=== PATIENT | female | born 1950 | race Caucasian/White ===

== ENCOUNTER 2024-01-07 14:26 | Inpatient (IN) | payer MEDICARE, OTHER, SELFPAY ==
--- NOTE | 2024-01-07 10:32 | W.PN.CARDCBS ---
Today's Communication / Plan
-
NPO
cefazolin preop
PPM today
Impression / Plan
-
PCP: Gisell Sam,
CDY: Mckenna Cortez MD
HPI: 73 y/o, PMH sig for HTN, HLD, GERD, DM, JENNIE/CPAP, Hypothyroid, known RBBB. Presented to ER after she noted bradycardia on her watch, rates 38-40s. She was found to be in CHB with LBBB pattern. She is on no BB or rate reducing meds. Lase Echo
01/2022 w/nml LVSF, mild MR, last nuclear perfusion study 01/2022 was reportedly normal. Transferred today for PPM implant.
IMPRESSION:
CHB, new LBBB
RBBB
HTN
HLD
GERD
DM
JENNIE/CPAP
Hypothyroidism
Iron Deficient Anemia
Depression
PLAN:
NPO preop
Iodine allergy is topical only- has had IV contrast without reaction- no need for dye prep
for DC PPM implant today
CXR post procedure
Cefazolin pre/post op prophylaxis
Continue current meds as before
hold metformin 48h post procedure d/t dye load
incision check next week at [facility]
followup with Dr. Cortez at [facility] thereafter
Progress Note - Volunteer Services Supervisor
Subjective
Date of Service: January 07, 2024
Physical Exam
Physical Exam
AAOx3, MAEE 02/26
Bradycardia, S1 S2, no murmurs
CTA bilat, non labored
soft abd, + bs
bilat extremities w/palpable distal pulses, no edema
[2024-01-07 12:58] LABS: Glucose - Point of Care 136 mg/dl (70-99)
--- NOTE | 2024-01-07 14:31 | ITS.CL.PACE ---
Addendum entered and electronically signed by Jean Paul MD 01/07/24 16:54:
Fluoroscopy Time (min): 17.3
Radiation Dose (mGy): 95.5
DAP (Gy.cm2): 11.4
Original Note:
Mirror Inspector - Pacemaker Implant
Pacemaker Implant
Procedure Report:
PACEMAKER IMPLANT REPORT
Primary Care Provider: Dr. Gisell Sam
Primary Blasting Gang Miner: Dr. Mckenna Cortez
Date of Procedure: January 07, 2024
Procedure:
1: Implantation of dual-chamber permanent pacemaker utilizing the left bundle branch for conduction system pacing
Indication/Diagnosis:
1: Non-reversible symptomatic bradycardia due to third degree atrioventricular block
HISTORY: The patient is a 73-year-old woman with a past medical history significant for diabetes and hypertension who presents in third-degree AV block with profound bradycardia. She is referred for a dual-chamber pacemaker placement.
Antibiotic: 2 g Ancef IV
Sedation: Conscious sedation
After informed consent was obtained, 'time out' was called and confirmed, the patient was prepped and draped in a sterile fashion. Lidocaine with epi was used for local anesthesia. Central venous access was obtained via subclavian venipuncture. An
incision was made along the left chest and a pre-pectoral pocket was formed. Using a Seldinger technique and peel-away sheaths, the pacing leads were placed under fluoroscopic guidance.
Fluoroscopy was used to determine likely anatomic site for left bundle branch pacing. The Medtronic C315 sheath was used to deliver the Medtronic 3830 Selectsecure pacing lead with the helix exposed just exposed from the sheath tip during continuous
monitoring when pacemapping the septum during gentle clockwise rotation to obtain a paced QRS morphology of a W pattern in lead V1. Once the suspected optimal site was identified, lead deployment was performed with several rapid rotations as paced
QRS morphology was intermittently monitored until a paced QRS complex in lead V1 demonstrated development of an R wave (qR or rSR).
Stable VEGM injury current is present throughout lead position and at end of case.
Final unipolar pacing impedance is 665 Ohms.
Unipolar pacing threshold is stable at 0.75V @ 0.4 ms.
Final conduction system paced QRS complex duration is 106ms.
LVAT is 69 ms and peak V5 -> peak V1 timing is 60 ms.
Right atrial lead was placed at the RAA.
Once testing (see below) showed adequate and stable function, the leads were secured using the suture sleeves. The pocket was liberally irrigated with antibiotic solution. The leads were connected to the generator header and the leads and
generator were placed within the pocket. Fluoroscopy confirmed stable lead position. The pocket was closed in the typical fashion.
Fluoroscopy was used to guide lead placement. Fluoroscopic exposure 17.3 min and [ ] mGy
IMPLANTS:
Medtronic [id number], SN: [id number], Left Pectoral
RA: Medtronic 5076-52, SN: [id number] , RAA
RV: Medtronic 3830 , SN:[id number], Interventricular septum at LBB
DEVICE TESTING:
Sensing: RA 2.0 mV, RV 6.0 mV
Capture: RA 0.75V@0.4ms, RV 0.75 V@0.4ms
Ohms: RA 475 , RV 665
FINAL PROGRAMMING
Fredy Pacing: DDDR 50-130 ppm
COMPLICATIONS: None
CONCLUSIONS:
1: Successful implant of dual chamber permanent pacemaker utilizing Left Bundle Branch conduction system capture for pacing. Overall findings are most consistent with LBB capture.
RECOMMENDATIONS:
1. Post-op care (tele, CXR, IV abx)
2. In-Office wound check in 5-7 days
Copy to: Dr. Gisell Sam, Dr. Mckenna Cortez
--- NOTE | 2024-01-07 17:04 | CM ---
spoke to pt in room, she is prev indep, lives with her husb in a 2 story hoe with a first floor set up and 3 steps to enter. she has a cane and walker to use if needed. she denies any dc planning needs or dme's. plan is for dc to home when medically
stable.
--- NOTE | 2024-01-07 18:07 | PTCARENOTE ---
Received patient post PPM left upper chest at 1630. Oriented to room and plan of care, admission assessment completed. Dressing left upper chest is dry and intact, sling in place LUE. Patient reports not pain or discomfort, reviewed post ppm
restrictions. VSS, assisted oob to the bathroom and voided qs. Transported via wheel chair to radiology and CXR done. Remains V paced on the monitor.
[2024-01-07] MEDS: TYLENOL 650 MG PO (19:15)
[2024-01-07] MEDS: ANCEF 5 IV (22:39)
--- NOTE | 2024-01-07 23:47 | PTCARENOTE ---
Patient ambulating w/ out difficulty and requires minimal assist with getting in & out of bed. Tele remains Vpaced on monitor, and HR in the 50-60's. VSS. Left anterior dressing C/D/I and sling remains in place. Patient aware of activity
restrictions. Call nickerson in reach.
[2024-01-08] MEDS: TYLENOL 650 MG PO ×2 (03:53→08:54)
[2024-01-08 04:43] LABS: Blood Urea Nitrogen 16 mg/dl (7-17); Calcium 9.3 mg/dl (8.4-10.2); Carbon Dioxide 25 mmol/L (22-30); Chloride 106 mmol/L (98-107); Estimated Creatinine Clearance 67 ml/min; Glucose 113 mg/dl (70-99); Magnesium 1.8 mg/dl (1.6-2.3); Potassium 4.5 mmol/L (3.5-5.1); Sodium 138 mmol/L (135-145); eGFR > 60.00
[2024-01-08 04:47] LABS: Hemoglobin 10.8 g/dL (12.0-16.0); Mean Corp Hgb Conc. 31.8 g/dL (33.0-37.0); Mean Corpuscular Hgb 28.1 pg (27.0-31.0); Mean Corpuscular Volume 88.3 fL (81.0-99.0); Platelet Count 260 10^3/uL (130-400); Red Blood Cell Count 3.85 10^6/uL (4.20-5.40); Red Cell Dist. Width 13.3 % (11.5-14.5); White Blood Cell Count 4.9 10^3/uL (4.8-10.8)
[2024-01-08] MEDS: SYNTHROID 137 MCG PO (06:20)
[2024-01-08] MEDS: ANCEF 5 IV (06:20)
--- NOTE | 2024-01-08 08:00 | W.PN.CARDCBS ---
Addendum entered and electronically signed by Alfred Flynn MD 01/08/24 08:40:
I saw and examined the patient.
The Airdox Fitter's note was reviewed and I agree with the note.
Comment: Briefly, 73-year-old woman who presented to [place] ER after noting bradycardia on her Apple Watch and was found to be in complete heart block
Transferred to [facility] for permanent pacemaker implantation on 01/07/2024
She is feeling well this morning, no cardiac complaints, paced on telemetry
Incision is clean dry and intact
For discharge from my perspective
Original Note:
Today's Communication / Plan
-
Stable for discharge
Hold metformin post procedure, resume Wednesday AM.
Follow up w/ [facility] for incision check
Impression / Plan
-
PCP: Gisell Sam DO
CDY: Mckenna Cortez MD
Impression:
CHB, new LBBB
s/p Medtronic DC PPM 01/07/2024
RBBB
HTN
HLD
GERD
DM
JENNIE/CPAP
Hypothyroidism
Iron Deficient Anemia
Depression
Plan:
-Presented initially to [facility] with bradycardia and found to be in CHB with LBBB pattern. She was transferred to for PPM implantation.
-s/p Medtronic PPM 01/07/2024. Doing well overnight without any dizziness.
-Remains paced on tele, HR stable.
-She was not on BB or CCB prior to procedure.
-Hold metformin 48h post procedure d/t dye load
-Incision check next week at [facility] has been arranged
-Followup with Dr. Cortez at [facility] thereafter
HPI: 73 y/o, PMH sig for HTN, HLD, GERD, DM, JENNIE/CPAP, Hypothyroid, known RBBB. Presented to ER after she noted bradycardia on her watch, rates 38-40s. She was found to be in CHB with LBBB pattern. She is on no BB or rate reducing meds. Lase Echo
01/2022 w/nml LVSF, mild MR, last nuclear perfusion study 01/2022 was reportedly normal. Transferred today for PPM implant.
Progress Note - Buffet Waiter/Waitress
Subjective
Date of Service: January 08, 2024
Feeling well this AM. No compaints.
Objective
Labs:
01/08/24 03:49
01/08/24 03:49
Labs
Hgb 10.8 g/dL (12.0-16.0) L 01/08/24 03:49
Hct 34.0 % (37.0-47.0) L 01/08/24 03:49
Plt Count 260 10^3/uL (130-400) 01/08/24 03:49
Sodium 138 mmol/L (135-145) 01/08/24 03:49
Potassium 4.5 mmol/L (3.5-5.1) 01/08/24 03:49
BUN 16 mg/dl (7-17) 01/08/24 03:49
Creatinine 0.9 mg/dL (0.6-1.0) 01/08/24 03:49
Glucose 113 mg/dl (70-99) H 01/08/24 03:49
Vital Signs and I&O:
Vital Signs
Temp Pulse Resp BP Pulse Ox
98.2 F 64 16 146/79 96
01/08/24 07:43 01/08/24 07:43 01/08/24 07:43 01/08/24 03:40 01/08/24 07:43
Vital Signs
Temp Pulse Resp BP Pulse Ox
98.2 F 64 16 146/79 96
01/08/24 07:43 01/08/24 07:43 01/08/24 07:43 01/08/24 03:40 01/08/24 07:43
Intake & Output
01/06/24 01/07/24 01/08/24 01/09/24
06:59 06:59 06:59 06:59
Intake Total 480 / 480
Balance 480 / 480
Physical Exam
Physical Exam
GEN: No distress, awake, alert, oriented x3
HEENT: supple, anicteric, mmm
LUNGS: CTA b/l, no wheezes/rales
CV: Reg, S1/S2, no murmur
EXT: No clubbing, cyanosis, or edema
NEURO: Gross non-focal
SKIN: Warm, dry, no rash. L chest dressing c/d/i
--- NOTE | 2024-01-08 08:15 | W.DS.TRANS ---
DC Summary - Networking Administrator
-
Discharge Instructions:
Discharge Diagnosis/Procedures Heart block, post Pacemaker implant
Diet Diabetic, Carb Controlled,Low Cholesterol
Driving Restrictions No driving for 1 week
Bathing Restrictions OK to Shower
Instructions:
Stand-Alone Forms: DC Inst - Implanted Device
Changes to Home Medications: No
Discharge Medications:
DC Medications w/original date entered in [employer]
atorvastatin 10 mg tablet 10 mg PO DAILY 01/07/24
ferrous sulfate 325 mg (65 mg iron) tablet 325 mg PO DAILY 01/07/24
fluoxetine 20 mg tablet 20 mg PO DAILY 01/07/24
hydrochlorothiazide 12.5 mg tablet 12.5 mg PO DAILY 01/07/24
levothyroxine 137 mcg tablet 137 mcg PO DAILY 01/07/24
losartan 100 mg tablet 100 mg PO DAILY 01/07/24
metformin 500 mg tablet 1,000 mg PO DAILY 01/07/24
metformin 500 mg tablet 500 mg PO QPM 01/07/24
omeprazole 20 mg capsule,delayed release 20 mg PO DAILY 01/07/24
Home Medication Changes
Pending Results: No
--- NOTE | 2024-01-08 08:20 | PTCARENOTE ---
Received patient this morning resting in bed, dressing left upper chest is dry and intact, patient offers no complaints.
[2024-01-08] MEDS: PROTONIX 40 MG PO (08:54)
[2024-01-08] MEDS: LIPITOR 10 MG PO (08:54)
[2024-01-08] MEDS: COZAAR 100 MG PO (08:54)
[2024-01-08] MEDS: PROZAC 20 MG PO (08:54)
[2024-01-08] MEDS: ORETIC 12.5 MG PO (08:54)
--- NOTE | 2024-01-08 11:47 | PTCARENOTE ---
Patient seen by cardiology and is ok for discharge. Reviewed discharge instructions with the patient and her and they state their understanding. Tegaderm and dressing removed from left chest wall as per MD order, steri strips intact, no
bleeding or hematoma noted. Patient aware of follow up incision check on Wednesday. Discharged home with her .
[2024-01-10 19:42] LABS: Hepatitis C Antibody Negative (Negative)
== END 2024-01-08 10:40 | disposition home or self-care (01) | DRG 244 ==
LOC: IVU 14:26
PROVIDERS: Internal Medicine Interventional Cardiology; Nurse Practitioner Adult Health; ADMITTING PHYSICIAN Internal Medicine Interventional Cardiology; FAMILY PHYSICIAN Internal Medicine
PROC: 02HK3JZ Insertion of Pacemaker Lead into Right Ventricle, Percutaneous Approach (ICD-10-PCS; 2024-01-07)
PROC: 0JH606Z Insertion of Pacemaker, Dual Chamber into Chest Subcutaneous Tissue and Fascia, Open Approach (ICD-10-PCS; 2024-01-07)
PROC: 02H63JZ Insertion of Pacemaker Lead into Right Atrium, Percutaneous Approach (ICD-10-PCS; 2024-01-07)
DX: I44.2 Atrioventricular block, complete (principal); I10 Essential (primary) hypertension; E78.5 Hyperlipidemia, unspecified; K21.9 Gastro-esophageal reflux disease without esophagitis; E11.9 Type 2 diabetes mellitus without complications; G47.33 Obstructive sleep apnea (adult) (pediatric); E03.9 Hypothyroidism, unspecified; D50.9 Iron deficiency anemia, unspecified; F32.A Depression, unspecified
CPT/HCPCS: 33208; 71045; 80048; 82962; 83735; 85027; 86803; 87070; 93005; C1769; C1785; C1887; C1892; C1898; Q9967